=== PATIENT | female | born 2000 | race Caucasian/White ===

== ENCOUNTER 2023-04-01 16:14 | Emergency (ER) | payer MEDICAID ==
[~2023-04-01] VITALS: Ht 162.6 cm; Wt 60.0 kg
[2023-04-01 16:25] VITALS: BP 123/72; PULSE 85; RESP 20; TEMP 98.2; O2SAT 98
[2023-04-01] MEDS ORDERED: HYDR453.4 TP (19:08)
== END 2023-04-01 22:20 | disposition home or self-care (01) ==
LOC: ER 16:14
DX: R21 Rash and other nonspecific skin eruption (principal)
CPT/HCPCS: 99281

== ENCOUNTER 2023-10-03 17:01 | Emergency (ER) | payer MEDICAID ==
[~2023-10-03] VITALS: Ht 162.6 cm; Wt 72.0 kg
[~2023-10-03 17:01] MED LIST: HYDR453.4 TP
[2023-10-03 17:12] VITALS: O2SAT 98
[2023-10-03] MEDS ORDERED: HYDR453.3 TP (20:48)
[2023-10-03 21:49] VITALS: BP 113/47; PULSE 83; RESP 20; TEMP 98
== END 2023-10-03 21:53 | disposition home or self-care (01) ==
LOC: ER 17:01
DX: L30.8 Other specified dermatitis (principal); N64.4 Mastodynia
CPT/HCPCS: 81025; 99282

== ENCOUNTER 2024-10-04 13:34 | Emergency (ER) | payer MEDICAID ==
[~2024-10-04] VITALS: Ht 157.5 cm; Wt 79.0 kg
[~2024-10-04 13:34] MED LIST changes: +HYDR453.3 TP
[2024-10-04 13:41] VITALS: TEMP 98.8; O2SAT 97
[2024-10-04 13:59] VITALS: O2SAT 97
[2024-10-04 15:24] LABS: BASOPHILS % 0.5 % (0.0-2.0); EOSINOPHILS % 3.8 % (0.0-5.0); HEMATOCRIT. 38.2 % (36.0-48.0); HEMOGLOBIN. 12.8 g/dL (12.0-16.0); MEAN CORPUSCULAR HEMOGLOBIN 28.6 pg (28.0-32.0); MEAN CORPUSCULAR HGB CONC 33.5 g/dL (31.0-37.0); MEAN CORPUSCULAR VOLUME 85.6 fL (81.0-99.0); MEAN PLATELET VOLUME 8.8 fl (7.4-10.4); MONOCYTES % 4.9 % (2.0-8.0); NEUTROPHILS % 64.8 % (40.0-76.0); PLATELET 312 x1000/uL (130-400); RED BLOOD CELL COUNT 4.46 mill/uL (4.2-5.4); RED CELL DISTRIBUTION WIDTH 13.5 % (11.6-14.6); WHITE BLOOD COUNT 9.8 x1000/uL (4.5-11.0)
[2024-10-04 15:33] LABS: CHLORIDE 107 mEq/L (98-107); POTASSIUM 3.9 mEq/L (3.5-5.1); SODIUM 140 mEq/L (136-145)
[2024-10-04 15:34] LABS: CALCIUM 9.3 mg/dL (8.7-10.4); CARBON DIOXIDE 26 mEq/L (21-32)
[2024-10-04 15:38] LABS: HCG SCREEN NEGATIVE
[2024-10-04 15:39] LABS: CREATININE 0.6 mg/dL (0.6-1.0); GLUCOSE 132 mg/dL (70-105); UREA NITROGEN BLOOD 13 mg/dL (9-23)
[2024-10-04 15:41] LABS: ALANINE AMINOTRANSFERASE 24 IU/L (10-49); ALBUMIN 4.6 g/dL (3.2-4.8); ASPARTATE AMINOTRANSFERASE 22 IU/L (<34); BILIRUBIN TOTAL 0.4 mg/dL (0.1-1.0); PROTEIN TOTAL 7.7 g/dL (6.0-8.3)
[2024-10-04 19:15] VITALS: BP 128/75; PULSE 103; RESP 18
[2024-10-04] MEDS: KETOROLAC 30MG/ML VIAL IM ONE (19:15)
[2024-10-04 19:37] LABS: CLARITY URINE CLOUDY (CLEAR); COLOR URINE YELLOW (YELLOW); GLUCOSE URINE NEGATIVE (NEGATIVE); KETONES URINE NEGATIVE (NEGATIVE); LEUKOCYTE ESTERASE URINE NEGATIVE (NEGATIVE); NITRITE URINE NEGATIVE (NEGATIVE); OCCULT BLOOD URINE TRACE (NEGATIVE); PH URINE 6.5 (4.5-8.0); PROTEIN URINE NEGATIVE (NEGATIVE); SPECIFIC GRAVITY URINE 1.026 (1.005-1.030)
[2024-10-04 19:45] LABS: BACTERIA URINE TRACE; SQUAMOUS EPITHELIAL CELL URINE 2+ /lpf (RARE/1+); WBC URINE 0-2 /hpf (0-2)
[2024-10-04 19:46] LABS: CALCIUM OXALATE CRYSTALS URINE 1+ /lpf
[2024-10-04] MEDS ORDERED: IBUP-2029 MT (20:35)
== END 2024-10-05 00:18 | disposition home or self-care (01) ==
LOC: ER 13:34
DX: R10.2 Pelvic and perineal pain (principal); Z68.31 Body mass index [BMI] 31.0-31.9, adult
CPT/HCPCS: 36415; 76830; 76856; 80053; 81003; 84703; 85025; 99284